=== PATIENT | female | born 1980 | race Caucasian/White ===

== ENCOUNTER → 2018-08-14 | Outpatient (CLI) | payer OTHER ==
[~2018-08-14] MED LIST: ATOR20TA58 PO; CELE200C PO; GLIP5TAB10 PO; LIRA0.6P2 SQ; METF10007 PO; PHEN37.53 PO
--- NOTE | 2018-08-14 18:39 | PAIN ---
DATE OF SERVICE: 08/14/2018 INITIAL CONSULTATION FOR PAIN CLINIC CHIEF COMPLAINT: Neck and right upper extremity pain. HISTORY OF PRESENT ILLNESS: This is a 38-year-old female who presents with history of pain for about a year. Pain in the base of the neck and right upper extremity, radiating to the anterior aspect of the deltoid, anterior biceps, anterior lateral forearm, into the thumb and first and second fingers with some numbness and tingling in the thumb and fingers, where she had been dropping some items, having difficulty with fine motor skills, coordination with the right hand and fingers, especially the thumb. The patient reports it is becoming more constant with tingling and numbness, shooting pain into the right upper extremity, not a result of any specific injury or action that she is aware of. This has been very painful with a tingling and numbness in the arm. It is becoming more and more over time. The patient reports no loss of motor function, but significant fatigability with the right arm and has been dropping items. The patient reports it does not awaken her from sleep at night, feels better with lying down, but she has been sleeping in a reclining chair. Otherwise, it will awaken her from sleep at night if she is lying down. The patient reports she has tried one epidural injection out of town in February of this year, which did help, but only temporarily. She has had chiropractic treatment as well as doing physical therapy, some stretching and strengthening exercises on her own, which she has been doing continuously since the pain began about a year ago, rotation motion, stretching and strengthening exercises with the neck, arm and shoulder on the right side, but without significant improvement. The patient is taking tramadol as well as hydrocodone, both of which helped to a moderate extent, but only about 25%. The patient did have an MRI scan of the cervical spine showing a C5-C6 level with posterior disk osteophyte complex formation, ventral and left paracentral impingement of the thecal sac with moderate neural foraminal narrowing, right-sided neural foramen as well with uncovertebral joint hypertrophy and disk osteophyte formation on the right to explain the patient's symptomatology. The patient reports no symptoms on the left side. PAST MEDICAL HISTORY: Significant for type 2 diabetes, hypertension, dizziness, arthritis. PREVIOUS SURGERY: Include appendectomy, abdominal cystectomy removed and fallopian tube revision. CURRENT MEDICATIONS: Include phentermine, Celebrex, atorvastatin, Victoza, glipizide and metformin. ALLERGIES: Only allergy to CIPRO. FAMILY HISTORY: Significant for cancer, heart disease, and high blood pressure. SOCIAL HISTORY: The patient does not drink alcohol, does not smoke, does not use any illegal, illicit or recreational drugs. She is , has one child, living at home, lives locally in [place], [place]. REVIEW OF SYSTEMS: The patient's review of systems is positive for those items mentioned in history of present illness. All systems reviewed and otherwise negative. It is complete, full and well documented on the patient's chart. PHYSICAL EXAMINATION: VITAL SIGNS: Today, the patient's blood pressure is 144/83, pulse 70, respirations 16, temperature 99.2 degrees Fahrenheit, height is 5 feet 7 inches, weighs 223 pounds. GENERAL: The patient is awake, alert, oriented, appropriate, very pleasant demeanor. HEENT: Head is normocephalic, atraumatic. Extraocular movements are intact and symmetrical. Oral cavity: Mucous membranes moist and pink. Dentition is intact. NECK: Shows anterior throat supple without palpable lymphadenopathy noted. Swallow reflex is symmetrical. CHEST: Shows normal with inspection. Breath sounds are clear to auscultation bilaterally. HEART: Shows S1, S2 clear. No murmurs auscultated. ABDOMEN: Soft, nontender, nondistended. No palpable organomegaly is noted. No rebound or guarding demonstrated. BACK: Shows spine grossly in the midline, normal-appearing cervical lordotic curvature, thoracic kyphotic curvature, and lumbar lordotic curve. Cervical paraspinous muscle shows symmetrical on inspection, on palpation shows some mild tenderness only diffusely in the inferior aspect of the cervical paraspinous musculature bilaterally, slightly more on the right in the superior medial and lateral trapezius with some firm musculature, but without specific trigger points, without radiation. The patient's neck shows good rotational motion both laterally greater than 45 degrees closer to 90 degrees as well as full forward flexion and full extension without significant pain reported. EXTREMITIES: The patient's upper extremities show deep tendon reflexes 2+ in the biceps, triceps tendons. Motor exam is approximately 3-4 on a scale of 5 on the right equine internship and 5/5 on the left; bicep and tricep flexion 4/5 right, 5/5 left. Peripheral pulses are 2+ radial distribution. No peripheral edema is noted. Shoulder shrug is strong and intact without loss of strength on resistance, but with some moderate pain reported on the right side with resistance. This is true with abduction of shoulder to 90 degrees as well with resistance, but without loss of strength on resistance. SKIN: Warm and dry, good turgor. No edema, no sores, rashes, or bruising. IMPRESSION: This is a 38-year-old female with, 1. About one year history of increasing pain in the base of neck, right upper extremity in a radicular fashion, radiating C5-C6, dermatomal distribution into the right arm and hand. 2. MRI scan of cervical spine as noted. 3. Hypertension. 4. Diabetes. 5. Arthritis. PLAN: Options were discussed with the patient including conservative medical management, physical therapy, interventional techniques and she is doing physical therapy on her own with stretching and strengthening exercises, has had this in the past and would like to pursue interventional techniques. We discussed a cervical epidural steroid injection using description as well as anatomical models to describe the procedure. The patient will wait for preauthorization from her insurance provider and will plan on cervical epidural steroid injection at that time. In the meantime, we will try Medrol Dosepak. The patient was given instruction as well as side effects to be aware of with medication. We will follow up in approximately 2 weeks. We will plan on cervical epidural steroid injection at that time. AUSTIN ANTHONY MD DR: ELIU/kourtney JOB#: [id number] / [id number] Pj Garces MD
== END | disposition home or self-care (01) ==
LOC: PNCL 08:32
PROVIDERS: ATTEND Anesthesiology
DX: M79.601 Pain in right arm (principal); M54.2 Cervicalgia; I10 Essential (primary) hypertension; E11.9 Type 2 diabetes mellitus without complications; M19.90 Unspecified osteoarthritis, unspecified site
CPT/HCPCS: 99214

== ENCOUNTER → 2018-08-29 | Outpatient (CLI) | payer OTHER ==
[~2018-08-29] MED LIST changes: +IOHEXOL 180 MG/ML 10 ML VIAL. ONE; +methylPREDNISolone ACETATE 40 MG/ML VIAL. ONE; +methylPREDNISolone ACETATE 80 MG/ML VIAL. ONE
--- NOTE | 2018-08-29 21:36 | PAIN ---
DATE OF SERVICE: 08/29/2018 PROGRESS NOTE FOR PAIN CLINIC DIAGNOSIS: Cervical radiculopathy with cervical degenerative disk disease. HISTORY OF PRESENT ILLNESS: The patient is a 38-year-old female who returns for followup status post initial evaluation and preauthorization for cervical epidural steroid injection. The patient has obtained that now and would like to proceed. Medrol Dosepak helped slightly, but only for the first week or so. The patient reports still pain in the base of the neck, right upper extremity, radiating as it was previously, aching, tingling, shooting, constant, becoming more severe. The patient reports it is a 4 on a scale of 10 at its worst, 3 on average, 2 at its least and is a 2 today. The patient reports it is only in the right side, essentially in the base of the neck, worse with weightbearing, repetitive motions of the right arm as well as reaching over her head such as putting on clothing and even a jacket with reaching back with her right arm. The patient reports no new motor or sensory deficits. It does not awaken her from sleep generally but can, is not every night. The patient reports no new motor or sensory deficits, no new bowel or bladder incontinence or other complaints, but still significant pain as noted. PHYSICAL EXAMINATION: VITAL SIGNS: The patient's blood pressure is 131/91, pulse 76, respirations 16, temperature 97.8 degrees Fahrenheit. Height is 5 feet 7 inches, weight is 222 pounds. GENERAL: The patient is awake, alert, oriented, appropriate, very pleasant demeanor. HEENT: Head shows normocephalic, atraumatic. Extraocular movements are intact and symmetrical. Oral cavity: Mucous membranes are moist and pink. Dentition is intact. NECK: No lymphadenopathy noted. CHEST: Shows normal on inspection. Breath sounds are clear to auscultation bilaterally. HEART: Shows S1, S2 clear. No murmurs auscultated. ABDOMEN: Soft, nontender, nondistended. No palpable organomegaly is noted. BACK: Shows spine grossly in the midline. Cervical paraspinous muscle shows symmetrical on inspection, on palpation shows some moderate tenderness, but only diffusely in the paraspinous musculature bilaterally. The patient has good rotational motion of cervical spine, both laterally as well as extension and flexion, with minor pain with extension, but not with forward flexion. EXTREMITIES: The patient's upper extremities show deep tendon reflexes 2+ in the biceps and triceps tendons. Motor exam is approximately 3 on a scale of 5 with right cash on delivery clerk and 5/5 on the left. Peripheral pulses are 2+ in radial distribution. No peripheral edema is noted. Options were discussed with the patient. The patient's old chart was reviewed as her current medication regimen updated. Current review of systems updated today as well. We will proceed with a first in this series of cervical epidural steroid injection today with fluoroscopic guidance. Risks were again discussed including, but not limited to bleeding, infection, possibility of epidural hematoma, subsequent neurological compromise, dural puncture, headaches, spinal cord and/or nerve damage, side effects of steroid medication and poor results regarding pain control. The patient understands and wished to proceed. The patient will return to the clinic in approximately 2 weeks for followup, was counseled on return appointment, activity level and side effects to be aware of. DIAGNOSIS: Cervical radiculopathy with cervical degenerative disk disease. PROCEDURE: Cervical epidural steroid injection, translaminar approach at the C6-C7 level using C-arm fluoroscopic guidance under sterile prep and drape using local anesthetic. MEDICATION INJECTED: A total of 120 mg Depo-Medrol plus 5 mL of preservative-free normal saline and 2 mL of Isovue for contrast. CONDITION AT DISCHARGE: Stable. The patient tolerated the procedure well, had no complications. AUSTIN ANTHONY MD DR: ELIU/kourtney JOB#: [id number] / [id number]
== END | disposition home or self-care (01) ==
LOC: PNCL 08:21
PROVIDERS: ATTEND Anesthesiology
DX: M50.123 Cervical disc disorder at C6-C7 level with radiculopathy (principal); I10 Essential (primary) hypertension; E11.9 Type 2 diabetes mellitus without complications; M19.90 Unspecified osteoarthritis, unspecified site; Z98.890 Other specified postprocedural states; Z79.899 Other long term (current) drug therapy
CPT/HCPCS: 62321; J1030; J1040; Q9965

== ENCOUNTER → 2018-09-21 | Outpatient (CLI) | payer OTHER ==
[~2018-09-21] MED LIST changes: -IOHEXOL 180 MG/ML 10 ML VIAL. ONE; -methylPREDNISolone ACETATE 40 MG/ML VIAL. ONE; -methylPREDNISolone ACETATE 80 MG/ML VIAL. ONE
--- NOTE | 2018-09-21 12:30 | PAIN ---
DATE OF SERVICE: 09/21/2018 PROGRESS NOTE FOR PAIN CLINIC DIAGNOSES: Cervical radiculopathy with cervical degenerative disk disease. HISTORY OF PRESENT ILLNESS: The patient is a 38-year-old female who returns for followup status post cervical epidural steroid injection x 1. The patient reports about 75% improvement initially, now about 50% improvement in overall lasting about 4 weeks and still about 50% better overall, but the first 2 weeks it is about 75% better. Now the pain is returning to some extent in the base of the neck in the right side, right upper extremity, right arm with some numbness and tingling in the hand and fingers. The patient reports most of the tingling is better. She still has fullness sensation with some fatigability in the right arm and radiating pain into the right bicep, into the right forearm, into the right thumb and first finger with some tingling in the finger as well. The patient reports her average pain is a 1 at its worst, 0 on average, 0 at its least and is a 1 today. The patient reports that she is doing much better. She is increasing her activity with greater ease and comfort, has been doing work activities as well as home activities, driving her car easier with her right arm and is very pleased with the progress thus far. The patient reports pain is returning, however, she describes as a tingling pain, on and off and feels like her arm is falling asleep at times. The patient reports no new motor or sensory deficits or other complaints. PHYSICAL EXAMINATION: VITAL SIGNS: The patient's blood pressure 142/76, pulse 72, respirations 18, temperature is 97.8 degrees Fahrenheit, weight is 223 pounds. GENERAL: The patient is awake, alert, oriented, appropriate, very pleasant demeanor. HEENT: Head shows normocephalic, atraumatic. Extraocular movements are intact and symmetrical. Oral cavity: Mucous membranes moist and pink. Dentition is intact. NECK: Shows anterior throat supple without palpable lymphadenopathy noted. Swallow is symmetrical. CHEST: Shows normal on inspection. Breath sounds clear to auscultation bilaterally. HEART: Shows S1, S2 clear. No murmurs auscultated. ABDOMEN: Soft, nontender, nondistended. No palpable organomegaly is noted. No rebound or guarding demonstrated. BACK: Shows spine grossly in the midline. Cervical paraspinous muscle shows symmetrical on inspection with normal cervical lordotic curvature, with palpation shows some moderate tenderness diffusely in the middle and lower distributions of the cervical paraspinous musculature, slightly more on the right than the left, but without asymmetry, without trigger points, no atrophy or hypertrophy. The patient has good rotational motion of cervical spine with some mild tenderness with extension, but not with forward flexion and full rotation of right and left past 45 degrees closer to 90 degrees without significant limitation or pain reported. EXTREMITIES: The patient's upper extremities show deep tendon reflexes 2+ in the biceps and triceps tendons. Motor exam is approximately 4 on a scale of 5 with right patient biller and 5/5 on the left. Bicep and tricep flexion is likewise 4/5 on the right, 5/5 on the left. Peripheral pulses are 2+ in radial distribution. No peripheral edema is noted bilaterally. PLAN: Options were discussed with the patient. The patient's old chart was reviewed as her current medication regimen updated. Current review of systems updated today as well. We will preauthorize the patient for a second cervical epidural steroid injection as she is having some increased radicular pain in the right upper extremity as previously in a C5-C6 dermatomal distribution, again significantly improved for several weeks, 75% now, about 50% overall after 4 weeks without new deficits. The patient will continue with stretching and strengthening exercises in the meantime. We will wait for preauthorization and have the patient return for a second cervical epidural steroid injection at that time. AUSTIN ANTHONY MD DR: ELIU/kourtney JOB#: [id number] / [id number]
== END | disposition home or self-care (01) ==
LOC: PNCL 08:06
PROVIDERS: ATTEND Anesthesiology
DX: M50.10 Cervical disc disorder with radiculopathy, unspecified cervical region (principal)
CPT/HCPCS: G0463

== ENCOUNTER → 2018-10-09 | Outpatient (CLI) | payer OTHER ==
[~2018-10-09] MED LIST changes: +IOHEXOL 180 MG/ML 10 ML VIAL. ONE; +methylPREDNISolone ACETATE 40 MG/ML VIAL. ONE; +methylPREDNISolone ACETATE 80 MG/ML VIAL. ONE
--- NOTE | 2018-10-09 10:56 | PAIN ---
DATE OF SERVICE: 10/09/2018 PROGRESS NOTE FOR PAIN CLINIC DIAGNOSIS: Cervical radiculopathy with cervical degenerative disk disease. HISTORY OF PRESENT ILLNESS: The patient is a 38-year-old female who returns for followup status post cervical epidural steroid injection x 1 with about 75% improvement. The patient was waiting for preauthorization and has obtained this now for second injection and would like to proceed. She still has pain in the right upper extremity, has numbness and tingling in the right hand in first, second and third fingers as well as the upper back and posterior shoulder. The patient reports it is tingling, sharp and aching, but much improved. The patient reports her pain is generally 0 over the past week and has been 0 today. The patient reports no new motor or sensory deficits, no new bowel or bladder incontinence. She has complained of the tingling more than the pain now in the right arm and hand. PHYSICAL EXAMINATION: VITAL SIGNS: The patient's blood pressure is 140/75, pulse 72, respirations are 18, temperature is 98.1 degrees Fahrenheit. Weight is 224 pounds. GENERAL: The patient is awake, alert, oriented, appropriate, very pleasant demeanor. HEENT: Head shows normocephalic, atraumatic. Extraocular movements are intact and symmetrical. Oral cavity: Mucous membranes moist and pink. Dentition intact. NECK: Shows anterior throat supple without palpable lymphadenopathy noted. Swallow reflex symmetrical. CHEST: Shows normal with inspection. Breath sounds clear to auscultation bilaterally. HEART: Shows S1, S2 clear. No murmurs auscultated. ABDOMEN: Soft, nontender, nondistended. No palpable organomegaly is noted. No rebound or guarding demonstrated. BACK: Shows spine grossly in the midline. Cervical lordotic curvature is slightly flattened. There is some mild increase in thoracic kyphotic curvature. Cervical paraspinous muscle shows symmetrical on inspection, with palpation shows some mild tenderness only diffusely without significant radiation. EXTREMITIES: The patient's upper extremities show deep tendon reflexes 2+ in the biceps, triceps tendons. Motor exam is approximately 4 on a scale of 5 on the right with biodiesel production technician strength 5/5 on the left. Peripheral pulses are 1+ posterior tibial. No peripheral edema is noted bilaterally. Options were discussed with the patient. The patient's chart was reviewed as her current medication regimen updated. Current review of systems updated today as well. We will proceed with second in the series of cervical epidural steroid injection today with fluoroscopic guidance. Risks were again discussed including, but not limited to, bleeding, infection, possibility of epidural hematoma and subsequent neurological compromise, dural puncture, headaches, spinal cord and/or nerve damage, side effects of steroid medication and poor results regarding pain control. The patient understands and wished to proceed. The patient will return to clinic in approximately 2 weeks for followup, was counseled on return appointment, activity level and side effects to be aware of. DIAGNOSIS: Cervical radiculopathy with cervical degenerative disk disease. PROCEDURE: Cervical epidural steroid injection, translaminar approach C6-C7 level using C-arm fluoroscopic guidance under sterile prep and drape using local anesthetic. MEDICATION INJECTED: A total of 120 mg Depo-Medrol plus 10 mL of preservative-free normal saline and 2 mL of Isovue for contrast. CONDITION AT DISCHARGE: Stable. The patient tolerated procedure well, had no complications. AUSTIN ANTHONY MD DR: ELIU/kourtney JOB#: [id number] / [id number]
== END ==
LOC: PNCL 08:22
PROVIDERS: ATTEND Anesthesiology
DX: M50.123 Cervical disc disorder at C6-C7 level with radiculopathy (principal)
CPT/HCPCS: 62321; J1030; J1040; Q9965

== ENCOUNTER → 2018-10-24 | Outpatient (CLI) | payer BC, OTHER ==
--- NOTE | 2018-10-24 12:34 | PAIN ---
DATE OF SERVICE: 10/24/2018 PROGRESS NOTE FOR PAIN CLINIC DIAGNOSES: Cervical radiculopathy with cervical degenerative disk disease. HISTORY OF PRESENT ILLNESS: The patient is a 38-year-old female who returns for followup status post cervical epidural steroid injection x 2. The patient reports only minimal improvement after her last injection, the first one was about 75% for about 2 weeks, now is less than 50. The patient reports she has had significant pain in the base of the neck, right upper extremity, right shoulder, right hand with numbness and tingling in the thumb and first and second fingers. The patient reports it is aching, dull, tingling, on and off in intensity, worse with repetitive motion and weightbearing. The patient reports the pain, though is less than the tingling and numbness, is more of a 1 on a scale of 10 of the pain at average and at its worst, 0 at its least and is a 1 today. The patient reports it is more itching and more tingling and numbness in the right arm and neck and shoulder. The patient reports it wakes her up from 5-6 hours of sleep. She needs to reposition and get back to sleep. No new motor or sensory deficits, no new bowel or bladder incontinence, or other complaints. PHYSICAL EXAMINATION: VITAL SIGNS: The patient's blood pressure is 137/75, pulse 71, respirations are 18, temperature 98.4 degrees Fahrenheit, height 5 feet 7 inches and weight is 220 pounds. GENERAL: The patient is awake, alert, oriented, and appropriate, very pleasant demeanor. HEENT: Shows normocephalic and atraumatic. Extraocular movements are intact and symmetrical. Oral cavity shows mucous membranes are moist and pink. Dentition is intact. NECK: Shows anterior throat supple without palpable lymphadenopathy noted. Swallow reflex is symmetrical. CHEST: Shows normal with inspection. Breath sounds are clear to auscultation bilaterally. HEART: Shows S1, S2 clear. No murmurs auscultated. ABDOMEN: Soft, nontender, nondistended. No palpable organomegaly is noted. No rebound or guarding demonstrated. BACK: Shows spine grossly in the midline, normal-appearing cervical lordotic curvature and thoracic kyphotic curvature slightly exaggerated. Cervical paraspinous muscle shows symmetrical on inspection, with palpation of some moderate tenderness diffusely, inferiorly in the cervical paraspinous musculature, more into the right trapezius superior medial aspect, but without specific trigger points, without radiation. The patient has good rotational motion of cervical spine, both laterally as well as extension and flexion without significant exacerbation of pain. EXTREMITIES: Upper extremities show deep tendon reflexes 2+ in the biceps and triceps tendons. Motor exam is approximately 5 on a scale of 5 on the left, 4/5 on the right with handbell choir director strength, biceps and triceps flexion. Peripheral pulses are 2+ in the radial distribution. No peripheral edema is noted bilaterally. PLAN: Options were discussed with the patient. The patient's old chart was reviewed as her current medication regimen updated. Current review of systems updated today as well. We will proceed with a third in the series of cervical epidural steroid injection today with fluoroscopic guidance. Risks were again discussed including, but not limited to bleeding, infection, possibility of epidural hematoma, subsequent neurological compromise, dural puncture, headaches, spinal cord and/or nerve damage, side effects of steroid medication and poor results regarding pain control. The patient understands and wished to proceed. The patient is to return to the clinic in approximately 2 weeks for followup, was counseled on return appointment, activity level and side effects to be aware of. DIAGNOSES: Cervical radiculopathy, cervical degenerative disk disease. PROCEDURE: Cervical epidural steroid injection, translaminar approach at C6-C7 level using C-arm fluoroscopic guidance under sterile prep and drape using local anesthetic. MEDICATION INJECTED: A total of 120 mg Depo-Medrol plus 5 mL of preservative-free normal saline and 2 mL of Isovue for contrast. CONDITION AT DISCHARGE: Stable. The patient tolerated procedure well, had no complications. AUSTIN ANTHONY MD DR: ELIU/kourtney JOB#: [id number] / [id number]
== END | disposition home or self-care (01) ==
LOC: PNCL 08:04
PROVIDERS: ATTEND Anesthesiology
DX: M50.123 Cervical disc disorder at C6-C7 level with radiculopathy (principal); Z88.1 Allergy status to other antibiotic agents
CPT/HCPCS: 62321; J1030; J1040; Q9965

== ENCOUNTER → 2019-03-27 | Outpatient (CLI) | payer BC ==
--- NOTE | 2019-03-28 04:49 | PAIN ---
DATE OF SERVICE: 03/27/2019 PROGRESS NOTE FOR PAIN CLINIC DIAGNOSES: Cervical radiculopathy with cervical degenerative disk disease. HISTORY OF PRESENT ILLNESS: The patient is a 39-year-old female who returns for followup status post cervical epidural steroid injections x 3, most recently seen on 10/24/2018. The patient did fairly well with this initially about 75% improvement and about 50% improvement after about a month and the last injection was not as significant. The patient reports about 75% initially, but only minimal decrease in pain after the last injection. The patient reports still pain in the base of the neck, right upper extremity, right shoulder, right lateral deltoid, lateral arm and anterior biceps into the forearm, into the thumb and first finger, which is tingling, burning, aching, shooting, becoming more constant with an aching sensation in the distribution as well. The patient reports the last week, the worst pain has been a 9 on a scale of 10, 7 on average, 3 at its least and is a 7 today. The patient reports no new motor or sensory deficits and no new bowel or bladder incontinence but still significant pain in the right upper extremity and the neck as well as the side of the face on the right. The patient reports no other changes. PHYSICAL EXAMINATION: VITAL SIGNS: The patient's blood pressure is 133/97, pulse 91, respirations 16 and temperature 98.3 degrees Fahrenheit. Height is 5 feet 7 inches and weight is 218 pounds. GENERAL: The patient is awake, alert, oriented, appropriate and very pleasant demeanor. HEENT: Head shows normocephalic and atraumatic. Extraocular movements are intact and symmetrical. The patient wears eye glasses. Oral cavity: Mucous membranes moist and pink. Dentition is intact. NECK: Shows anterior throat supple without palpable lymphadenopathy noted. Swallow reflex is symmetrical. CHEST: Shows normal on inspection. Breath sounds are clear to auscultation bilaterally. HEART: Shows S1 and S2 clear. No murmurs auscultated. ABDOMEN: Obese, soft, nontender and nondistended. BACK: Shows spine grossly in the midline. Normal appearing thoracic kyphosis and cervical lordotic curvature. Cervical paraspinous musculature shows symmetrical on inspection and palpation shows some moderate tenderness diffusely bilaterally but only diffusely without specific radiation. The patient has good rotational motion of the cervical spine with some minor tenderness with extension but not with forward flexion. Right and left lateral rotations performed past 45 degrees, closer to 90 degrees without significant difficulty. EXTREMITIES: The patient's upper extremities show deep tendon reflexes at 2+ in the biceps and triceps tendons. Motor exam is approximately 4 on a scale of 5 with right it field technician strength, bicep and tricep flexion 5/5 on the left. Peripheral pulses are 2+ in the radial distribution bilaterally. No edema. Options were discussed with the patient. The patient's old chart was reviewed as well as her current medication regimen updated. Current review of systems updated today as well. We will proceed with a cervical epidural steroid injection today, is the first in the series with fluoroscopic guidance. Risks were again discussed including, but not limited to bleeding, infection, possibility of epidural hematoma and subsequent neurological compromise, dural puncture, headaches, spinal cord and/or nerve damage, side effects of steroid medication and poor results regarding pain control. The patient understands and wished to proceed. The patient will return to the clinic in approximately 2 weeks for followup, was counseled as to return appointment, activity level and side effects to be aware of. DIAGNOSES: Cervical radiculopathy with cervical degenerative disk disease. PROCEDURE: Cervical epidural steroid injection, translaminar approach, C6-C7 level using C-arm fluoroscopic guidance under sterile prep and drape using local anesthetic. MEDICATION INJECTED: A total of 120 mg Depo-Medrol plus 5 mL of preservative-free normal saline and 2 mL of Isovue for contrast. CONDITION AT DISCHARGE: Stable. The patient tolerated the procedure well and had no complications. AUSTIN ANTHONY MD DR: ELIU/kourtney JOB#: [id number] / [id number]
== END ==
LOC: PNCL 09:06
PROVIDERS: ATTEND Anesthesiology
DX: M50.123 Cervical disc disorder at C6-C7 level with radiculopathy (principal); M54.2 Cervicalgia; M25.511 Pain in right shoulder
CPT/HCPCS: 62321; J1030; J1040; Q9965

== ENCOUNTER → 2019-04-12 | Outpatient (CLI) | payer BC ==
--- NOTE | 2019-04-12 10:21 | PAIN ---
DATE OF SERVICE: 04/12/2019 DIAGNOSES: Cervical radiculopathy with cervical degenerative disk disease. HISTORY OF PRESENT ILLNESS: The patient is a 39-year-old female who returns for followup status post cervical epidural steroid injection x 1. The patient reports about 25% improvement and still currently helping with the pain in the right upper extremity, base of the neck and shoulder. The patient reports it is 8 on a scale of 10 at its worst over the past week, 6 on average, 3 at its least and is a 6 today. The patient reports it is aching, sharp, tight, with some numbness and tingling in the right arm and hand, mostly the thumb and first finger on the right hand. It is becoming more constant with time, but still improved by about 25%. The patient reports she is increasing her household activities and distance walking with greater ease and comfort and ability to use right upper extremity with greater ease and comfort as well, has not been dropping any items. The patient reports no new deficits or other complaints. PHYSICAL EXAMINATION: VITAL SIGNS: The patient's blood pressure is 131/89, pulse 76, respirations 16, temperature is 98.6 degrees Fahrenheit, height is 5 feet 7 inches, weight is 217 pounds. GENERAL: The patient is awake, alert, oriented, appropriate, very pleasant demeanor. HEENT: Head is normocephalic, atraumatic. Extraocular movements are intact and symmetrical. Oral cavity: Mucous membranes moist and pink. Dentition is intact. NECK: Shows anterior throat supple without palpable lymphadenopathy noted. Swallow reflex symmetrical. CHEST: Shows normal with inspection. Breath sounds clear to auscultation bilaterally. HEART: Shows S1, S2 clear. No murmurs auscultated. ABDOMEN: Soft, obese, nontender, nondistended. BACK: Shows spine grossly in the midline. Cervical paraspinous muscle shows symmetrical on inspection. On palpation shows some moderate tenderness diffusely in the inferior aspect of the cervical paraspinous musculature, but only diffusely without radiation. The patient has good rotational motion both laterally as well as extension and flexion without significant difficulty. EXTREMITIES: Upper extremities show deep tendon reflexes 2+ in the biceps and triceps tendons. Motor exam is strong with approximately 4 on a scale of 5 on the right meter maker strength and 5/5 on the left. Peripheral pulses are 2+ radial distribution. No peripheral edema is noted. Options were discussed with the patient. The patient's old chart was reviewed as her current medication regimen updated. Current review of systems updated today as well. We will proceed with a second in the series of cervical epidural steroid injection today with fluoroscopic guidance. Risks were again discussed including, but not limited to bleeding, infection, possibility of epidural hematoma, subsequent neurologic compromise, dural puncture, headaches, spinal cord and/or nerve damage, side effects of steroid medication and poor results regarding pain control. The patient understands and wished to proceed. The patient will return to clinic in approximately 2 weeks for followup. She was counseled on return appointment, activity level and side effects to be aware of. DIAGNOSES: Cervical radiculopathy with cervical degenerative disk disease. PROCEDURE: Cervical epidural steroid injection, translaminar approach C6-C7 level using C-arm fluoroscopic guidance under sterile prep and drape using local anesthetic. MEDICATION INJECTED: A total of 120 mg Depo-Medrol, plus 5 mL of preservative-free normal saline and 2 mL of Isovue for contrast. CONDITION AT DISCHARGE: Stable. The patient tolerated the procedure well, had no complications. AUSTIN ANTHONY MD DR: ELIU/kourtney JOB#: [id number] / [id number]
== END ==
LOC: PNCL 08:58
PROVIDERS: ATTEND Anesthesiology
DX: M50.123 Cervical disc disorder at C6-C7 level with radiculopathy (principal); M25.511 Pain in right shoulder
CPT/HCPCS: 62321; J1030; J1040; Q9965

== ENCOUNTER → 2019-04-29 | Outpatient (CLI) | payer BC ==
--- NOTE | 2019-04-29 08:57 | PAIN ---
DATE OF SERVICE: 04/29/2019 DIAGNOSES: Cervical radiculopathy with cervical degenerative disk disease. HISTORY OF PRESENT ILLNESS: The patient is a 39-year-old female who returns for followup status post cervical epidural steroid injections x 2. The patient reports only minimal decrease in pain with about 70% improvement in the pain, but still significant numbness in the right shoulder and upper extremity. The patient reports also numbness in the right lower extremity in the posterolateral calf with walking. The patient reports no new motor or sensory deficits, but significant fatigability in the right upper extremity and significant constant aching and numbness in the right shoulder, right arm, radiating into the right forearm, thumb and first and second fingers on the right hand. The patient reports it is aching and dull at times, tingling, getting more constant, also some pain and numbness in the posterior calf on the right side. The patient reports the pain is a 6 on a scale 10 at its worst over the past week, 4 on average, 2 at its least and is 4 today. The patient reports no new motor or sensory deficits, no new bowel or bladder incontinence. PHYSICAL EXAMINATION: VITAL SIGNS: The patient's blood pressure is 122/81, pulse 84, respirations 16, temperature 98.4 degrees Fahrenheit, height 5 feet 7 inches, weight is 217 pounds. GENERAL: The patient is awake, alert, oriented, appropriate, very pleasant demeanor. HEENT: Head shows normocephalic, atraumatic. Extraocular movements intact and symmetrical. Oral cavity: Mucous membranes are moist and pink. Dentition is intact. NECK: Shows anterior throat supple without palpable lymphadenopathy noted. Swallow reflex is symmetrical. CHEST: Shows normal on inspection. Breath sounds are clear to auscultation bilaterally. HEART: Shows S1, S2 clear. No murmurs auscultated. ABDOMEN: Soft, nontender, nondistended. No palpable organomegaly is noted. No rebound or guarding demonstrated. BACK: Shows spine grossly in the midline. Cervical paraspinous muscle shows symmetrical on inspection and palpation shows some moderate tenderness diffusely but only diffusely without radiation. The patient has good rotational motion of cervical spine with some moderate tenderness with extension, also far right lateral rotation, but not with left or with forward flexion. EXTREMITIES: The patient's upper extremities show deep tendon reflexes 2+ in the biceps and triceps tendons. Motor exam is approximately 4 on a scale 5 on the right with cage maker machine strength, bicep and tricep flexion 5/5 on the left. The patient's lower extremities show deep tendon reflexes at 1+ in the patellar and tendo calcaneus tendons are equal. Motor exam is approximately 4 on a scale of 5 on the right, 5/5 on the left with dorsiflexion and extension. Peripheral pulses are 2+ radial, 1+ posterior tibial. Options were discussed with the patient. The patient's old chart was reviewed, as her current medication regimen updated. Current review of systems updated today as well. We will proceed with a third in the series of cervical epidural steroid injection today with fluoroscopic guidance. Risks were again discussed including, but not limited to bleeding, infection, possibility of epidural hematoma, subsequent neurological compromise, dural puncture, headaches, spinal cord and/or nerve damage, side effects of steroid medication and poor results regarding pain control. The patient understands and wished to proceed. The patient will return to clinic in approximately 2 weeks for followup. She was counseled on return appointment, activity level and side effects to be aware of. Also discussed possibility of a neurosurgical consultation. We will order MRI scan of both the cervical and lumbar spines as she has significant radicular component persistent in the right upper extremity in a C5-C6 dermatomal distribution, also in a L5-S1 dermatomal distribution in the right lower extremity with significant radiculopathy there as well. We will order MRI scans for both of these to assess any progression of findings from her scan in 01/2018 of the cervical spine and new radiculopathy in the low back and the right lower extremity as noted. DIAGNOSES: Cervical radiculopathy with cervical degenerative disk disease. PROCEDURE: Cervical epidural steroid injection, translaminar approach C6-C7 level using C-arm fluoroscopic guidance under sterile prep and drape using local anesthetic. MEDICATION INJECTED: A total of 120 mg Depo-Medrol, plus 5 mL preservative free normal saline and 2 mL of Isovue for contrast. CONDITION AT DISCHARGE: Stable. The patient tolerated the procedure well, had no complications. AUSTIN ANTHONY MD DR: ELIU/kourtney JOB#: [id number] / [id number]
== END ==
LOC: PNCL 07:36
PROVIDERS: ATTEND Anesthesiology
DX: M50.123 Cervical disc disorder at C6-C7 level with radiculopathy (principal)
CPT/HCPCS: 62321; J1030; J1040; Q9965

== ENCOUNTER → 2019-05-10 | Outpatient (CLI) | payer BC ==
[~2019-05-10] MED LIST changes: -IOHEXOL 180 MG/ML 10 ML VIAL. ONE; -methylPREDNISolone ACETATE 40 MG/ML VIAL. ONE; -methylPREDNISolone ACETATE 80 MG/ML VIAL. ONE
--- NOTE | 2019-05-10 10:12 | KCIC ---
CERVICAL SPINE WO CONTRAST History: Cervical radiculopathy. Right-sided upper extremity numbness. Technique: Multiplanar, multi sequential noncontrast MR imaging was performed of the cervical spine. Comparison: None Findings: Motion degraded examination. Multiple repeat sequences were attempted. Normal vertebral body height and alignment. No fracture. No definite signal abnormality within the cervical spinal cord although images are degraded by patient motion. C2-C3: No canal or neuroforaminal narrowing. C3-C4: Mild right uncovertebral facet arthropathy. Mild right neural foraminal narrowing. No left neural foraminal narrowing. No canal narrowing. C4-C5: Right uncovertebral facet arthropathy. Mild right neuroforaminal narrowing. No canal narrowing. C5-C6: Left posterior disc extrusion extending inferiorly. There is abutment and deformity of the left cervical cord. Moderate left canal narrowing. No neural foraminal narrowing. C6-C7: No canal or neuroforaminal narrowing. C7-T1: No canal or neuroforaminal narrowing. Impression: 1. C5-C6 left disc extrusion contributing to left cord deformity and moderate canal narrowing. 2. Mild additional cervical spondylosis with mild right neural foraminal narrowing C3-C4 and C4-C5. Electronically signed by: Ever Basilio DO (05/10/2019 10:09 AM) [email or web address]
--- NOTE | 2019-05-10 10:17 | KCIC ---
LUMBAR SPINE WO CONTRAST History: Lumbar radiculopathy. Right lower extremity pain and numbness. Technique: Multiplanar, multi sequential MR imaging was performed of the lumbar spine. Comparison: None Findings: Normal vertebral body height and alignment. No fracture. Conus terminates at the normal location. No evidence of nerve root clumping. L1-L2: No canal or neuroforaminal narrowing. L2-L3: Mild disc height loss. No canal or neuroforaminal narrowing. L3-L4: No canal or neuroforaminal narrowing. Mild facet arthropathy. L4-L5: Minimal posterior disc bulge. Mild facet arthropathy. No canal or neuroforaminal narrowing. L5-S1: Prominent ventral epidural fat. Mild facet arthropathy. No canal or neuroforaminal narrowing. Impression: 1. Mild multilevel lumbar spondylosis. No significant canal or neuroforaminal narrowing. Electronically signed by: Ever Basilio DO (05/10/2019 10:14 AM) [email or web address]
== END ==
LOC: KCIC MRI 08:22
PROVIDERS: ATTEND Anesthesiology
DX: M51.16 Intervertebral disc disorders with radiculopathy, lumbar region (principal); M50.122 Cervical disc disorder at C5-C6 level with radiculopathy; M47.816 Spondylosis without myelopathy or radiculopathy, lumbar region; M48.02 Spinal stenosis, cervical region; M47.812 Spondylosis without myelopathy or radiculopathy, cervical region
CPT/HCPCS: 72141; 72148

== ENCOUNTER → 2019-07-05 | Outpatient (CLI) | payer BC ==
[~2019-07-05] MED LIST changes: +IOHEXOL 300 MG/ML 50 ML VIAL. IT ONE; +LIDOCAINE 1% Multi-Dose 20 ML VIAL. ID ONE
--- NOTE | 2019-07-05 13:03 | KCIC ---
Cervical spine CT without contrast History: Right cervical radiculopathy Technique: CT imaging was performed of the cervical spine. Multiplanar images are reviewed. Exposure: One or more of the following individualized dose reduction techniques were utilized for this examination: 1. Automated exposure control 2. Adjustment of the mA and/or kV according to patient size 3. Use of iterative reconstruction technique. Comparison: May 10, 2019 MRI cervical spine exam Findings: No cervical spine acute fracture is identified. Vertebral body stature is preserved. There is minimal anterior spondylolisthesis at C3-C4 and C4-5. There is reversal of the lordotic curvature centered at C4-5. There is mild dextroscoliosis centered near C3. Atlanto-axial distance is within normal limits. There is appropriate alignment of lateral masses of C1 relative to C2. Occipital condylar-C1 relationship is maintained. There is moderate to severe C5-6 degenerative disc disease, minimally at C4-C5 and C7-T1. Poorly evaluated, there is somewhat nodular appearance of the visualized thyroid gland. C2-3: Neural foramina and spinal canal are adequate. C3-C4: Spinal canal is adequate. There is mild right uncovertebral degenerative change. Left neural foramen is adequate, [id number] narrowing of the right neural foramen. C4-C5: Spinal canal is adequate. Neural foramina are not significantly narrowed. C5-6: There is disc osteophyte complex. There is extrusion extending below the intervertebral disc space to the level of approximate superior one third of C6 although there is some calcification along the inferior margin. Extrusion in greatest dimension measures about 0.7 cm CC by 0.2 cm AP by up to about 0.7 cm transverse, more broad component of extrusion near the intervertebral disc space level. At the intervertebral disc space level, there is moderate narrowing of the far left lateral recess with contact of the left ventral cord. Central canal is minimally narrowed to about 9 mm at the intervertebral disc space level. There is somewhat lesser degree of lateral recess stenosis just below the intervertebral disc space level although also some deformity of the left ventral cord. Neural foramina are overall adequate. C6-7: Neural foramina and spinal canal are adequate. C7-T1: Neural foramina and spinal canal are adequate. Impression: 1. There is a partially calcified extrusion extending below the C5-6 intervertebral disc space in the left lateral recess, resultant moderate left lateral recess stenosis at and below the intervertebral disc space level with contact of the left ventral cord. 2. There is degenerative disc disease greatest at C5-6, to lesser degree at C4-5 and C7-T1. 3. There is nonspecific reversal of the lordotic curvature. 4. There is mild to moderate narrowing of the right C3-4 neural foramen in part by mild uncovertebral degenerative change. 5. There is nodular appearance of the thyroid gland although poorly characterized on this exam better evaluated with ultrasound as per clinical indication. Electronically signed by: Dmitri Hong MD (07/05/2019 1:00 PM) [email or web address]
--- NOTE | 2019-07-05 13:04 | KCIC ---
Cervical myelogram History: Right cervical radiculopathy Technique: Patient was informed of the risks to include pain, infection, bleeding, seizures, allergic reaction, nerve root injury. All questions were answered. Patient signed a written consent form for a cervical myelogram. The patient was placed in a prone oblique position. The patient was prepped and draped in the usual sterile fashion. 1% lidocaine was utilized for local anesthesia at the anticipated site of puncture of the right L3-4 interlaminar space. A 19-gauge guiding needle was advanced into the soft tissues. Through the guiding needle, a 25 gauge Alpesh needle was advanced until there was return of cerebral spinal fluid. Approximately 10 cc Omnipaque 300 were then injected during fluoroscopic visualization. The needles were removed. Bandage was applied. Patient was repositioned so as to allow for the flow of contrast into the cervical spine. Fluoroscopic spot images and lateral view of the cervical spine were obtained. The patient was then transferred to the CT department for CT examination of the cervical spine. There were no immediate complications. At the conclusion of CT exam, patient reported itching rash of the right forearm although no visible defined hive in this region and findings improved after short observation, no other definitive clinical findings of allergic reaction. Fluoroscopy time: 45 seconds, 9 images Findings: There is no evidence of myelographic block. There is moderate to severe degenerative disc disease C5-6. There is mild reversal of the lordotic curvature centered near C5-6. There is anterior extradural defect C5-6. Impression: 1. There is C5-6 degenerative disc disease. There is anterior extradural defect at C5-6. 2. Patient reported mild diffuse itchy rash of the right forearm after the exam although no visible defined hive in this region and findings improved after short observation, no other definitive findings of allergic reaction. Electronically signed by: Dmitri Hong MD (07/05/2019 1:01 PM) [email or web address]
== END | disposition home or self-care (01) ==
LOC: KCIC 10:37
PROVIDERS: ATTEND Neurological Surgery
DX: M54.12 Radiculopathy, cervical region (principal)
CPT/HCPCS: 72240; Q9967; 72126